=== PATIENT | female | born 1950 | race Native Hawaiian/Other Pacific Islander ===

== ENCOUNTER 2017-02-07 14:39 | Outpatient (CLI) | payer BC | END 2017-02-07 19:12 | disposition home or self-care (01) | LOC: RAD 14:39 | DX: M79.605 Pain in left leg (principal) ==

== ENCOUNTER 2018-08-14 19:53 | Emergency (ER) | payer BC ==
[~2018-08-14] VITALS: Ht 157.5 cm; Wt 63.0 kg
[2018-08-14 23:05] VITALS: BP 137/77; TEMP 98.3
== END 2018-08-14 23:07 | disposition home or self-care (01) ==
LOC: ED 19:53
DX: G43.909 Migraine, unspecified, not intractable, without status migrainosus (principal); R03.0 Elevated blood-pressure reading, without diagnosis of hypertension
CPT/HCPCS: 96372; 99283; J2175; J2405

== ENCOUNTER 2020-08-19 09:55 | Outpatient (CLI) | payer BC | END 2020-08-19 19:09 | disposition home or self-care (01) | LOC: MAMMO 09:55 | DX: Z12.31 Encounter for screening mammogram for malignant neoplasm of breast (principal) ==

== ENCOUNTER 2023-04-24 08:32 | Outpatient (CLI) | payer BC | END 2023-04-24 20:21 | disposition home or self-care (01) | LOC: MAMMO 08:32 | PROVIDERS: ATTEND Internal Medicine | DX: Z12.31 Encounter for screening mammogram for malignant neoplasm of breast (principal) ==